=== PATIENT | male | born 2000 | race Two or more races ===

== ENCOUNTER 2023-03-12 21:34 | Emergency (ER) | payer SELFPAY ==
[2023-03-12 21:49] VITALS: BP 141/84; PULSE 105; RESP 18; TEMP 98.1; BMI 25.5
[2023-03-12] MEDS ORDERED: LIDOCAINE PATCH REMOVAL MC SCH (22:00)
[2023-03-12] MEDS ORDERED: ACETAMINOPHEN 500 MG TABLET (FP) PO ONE (23:35)
[2023-03-12] MEDS ORDERED: LIDOCAINE 5% TOPICAL PATCH TP ONE (23:35)
[2023-03-12] MEDS ORDERED: LIDOCAINE 4% PATCH TP ONE (23:38)
[2023-03-12] MEDS ORDERED: ACETAMINOPHEN 325 MG TABLET (FP) ONE (23:38)
== END 2023-03-13 03:08 | disposition home or self-care (01) ==
LOC: JER 21:34
DX: R10.32 Left lower quadrant pain (principal); M54.50 Low back pain, unspecified; R20.9 Unspecified disturbances of skin sensation; X50.0XXA Overexertion from strenuous movement or load, initial encounter; Y99.0 Civilian activity done for income or pay
CPT/HCPCS: 72131-TC; 74176-TC; 99284-25